=== PATIENT | female | born 1970 | race Asian ===

== ENCOUNTER 2021-01-31 02:52 | Emergency (ER) | payer MEDICAID ==
[~2021-01-31] VITALS: Ht 157.5 cm; Wt 58.1 kg
[2021-01-31 03:05] VITALS: BP 134/77
--- NOTE | 2021-01-31 03:05 | NUR ---
TO BED AMBULATORY
--- NOTE | 2021-01-31 03:17 | NUR ---
50 Y/O FEMALE C/O AND PAIN X3DAYS RADIATING TO L FLANK. WITH N/V, DENIES DIARRHEA. PT STATES 10/10 PAIN. ABD SOFT NON TENDER. RX: ALEVE WITH NO RELIEF MEDHX: DENIES ALLERGIES: PENICILLIN
--- NOTE | 2021-01-31 03:47 | NUR ---
Dr. Magaña examining patient.
[2021-01-31] MEDS ORDERED: KETOROLAC 60 MG/2 ML VIAL IM ONE (03:50)
[2021-01-31] MEDS ORDERED: IBUP-2213 PO ×2 (04:01→04:12)
[2021-01-31] MEDS ORDERED: ACET-8386 PO ×2 (04:01→04:12)
[2021-01-31 04:15] VITALS: BP 134/77
--- NOTE | 2021-01-31 04:15 | NUR ---
Patient discharged with v/s stable. Written and verbal after care instructions given and explained. Patient alert, oriented and verbalized understanding of instructions. Ambulatory with steady gait. All questions addressed prior to discharge. ID band removed. Patient advised to follow up with PMD. Rx of HYDROCODONE-ACETAMINOPHEN AND IBUPROFEN given. Patient educated on indication of medication including possible reaction and side effects. Opportunity to ask questions provided and answered.
== END 2021-01-31 03:05 | disposition home or self-care (01) ==
LOC: MED 02:52
DX: R10.30 Lower abdominal pain, unspecified (principal); R11.2 Nausea with vomiting, unspecified; Z88.0 Allergy status to penicillin
CPT/HCPCS: 81002; 81025; 96372; 99283; J1885